=== PATIENT | male | born 1950 | race Caucasian/White ===

== ENCOUNTER → 2018-09-14 | Outpatient (CLI) | payer MEDICARE, OTHER ==
[~2018-09-14] MED LIST: DUTA.5 PO; Flurbiprofen100 MG; HYDSUL200 PO; INCRUSE ELLI62.5 MCG; LIVALO2 MG; METTREX2.5; PRED1; TAMS.4ER; TEMA30 PO
== END | disposition home or self-care (01) ==
LOC: LAB SHORT 07:42 → PLD 07:42
DX: B88.0 Other acariasis (principal); L81.4 Other melanin hyperpigmentation
CPT/HCPCS: 88305

== ENCOUNTER 2020-08-13 08:56 | Day surgery (SDC) | payer MEDICARE, OTHER ==
[~2020-08-13] VITALS: Ht 182.9 cm; Wt 78.4 kg
[~2020-08-13 08:56] MED LIST changes: +ALBU90OI INH; +BIOTIN1 MG PO; +BISM300CH PO; +FOLI1 PO; +LACTOBACILLUS1 EAC4 PO; +LOPE2C PO; +MULVITA PO; +RESTORIL30 M1 PO; +TUMS500 MG PO; +VITAMIN D310 MC4 PO; +Vitamin C100 M1 PO; +XYOSTED100 MG/0.1 SC
--- NOTE | 2020-08-13 09:54 | NUR ---
Ambulatory in Day Surgery. Surgical site prepped with 2% Chlorhexidine cloth wipe. History, Chart, Medications and Allergies reviewed before start of procedure. Lungs clear T/O to Auscultation. Patient confirms NPO status and agrees with scheduled surgery. Pre-Op teaching done. Pt verbalizes understanding. Patient States Post-Procedure ride home has been arranged. Patient reports completing Chlorhexadine shower X2 prior to admission to hospital.
--- NOTE | 2020-08-13 14:49 | NUR ---
LE 1350 Patient up to Ambulate independently. Gait steady. Discharge instructions reviewed with patient. Patient verbalizes understanding. Copy given to patient to take home. PT VERBALIZED UNDERSTANDING OF [facility] DRAINAGE SYSTEM. Dressing to procedure site clean, dry, intact with no visible drainage, swelling, erythema or bruising noted. Patient States Post-Procedure ride home has been arranged. Discharged via wheelchair to private car for ride home. ALL BELONINGS RETURHED TO PATIENT. WENT OVER DISCHARGE INSTRUCTIONS AND [facility] [employer] C[employer] WITH PER PT REQUEST.
[2020-08-14] MEDS ORDERED: LIVALO4 MG PO (19:30)
[2020-08-14] MEDS ORDERED: LEFLUNOMIDE20 M1 PO (19:31)
[2020-08-14] MEDS ORDERED: HYOSCYAMINE0.125 MG SL (19:31)
[2020-08-14] MEDS ORDERED: FLUTICASONE-SA1 EAC8 INH (19:31)
[2020-08-14] MEDS ORDERED: Hydroxychloroq200 MG PO (19:31)
[2020-08-14] MEDS ORDERED: PARO10 PO (19:32)
[2020-08-14] MEDS ORDERED: DUTASTERIDE PO (19:32)
[2020-08-14] MEDS ORDERED: DEPO-TESTO200 MG/1 M IM (19:32)
[2020-08-14] MEDS ORDERED: TAMSULOSIN HCL0.4 M1 PO (19:33)
[2020-08-14] MEDS ORDERED: FOLI1 PO (19:33)
[2020-08-14] MEDS ORDERED: OMEP20ER PO (19:33)
[2020-08-14] MEDS ORDERED: ASCO500 PO (19:34)
[2020-08-14] MEDS ORDERED: MULVITA PO (19:34)
[2020-08-14] MEDS ORDERED: ALLEGRA ALLERG180 MG PO (19:34)
[2020-08-14] MEDS ORDERED: MERIBIN5 M1 PO (19:34)
[2020-08-14] MEDS ORDERED: THERA-D2000 UNIT PO (19:34)
== END 2020-08-13 22:41 | disposition home or self-care (01) ==
LOC: ORSCMMR 08:56 → ORD 10:15 → ORSCMMR 22:41
PROVIDERS: Surgery
PROC: BF031ZZ Plain Radiography of Gallbladder and Bile Ducts using Low Osmolar Contrast (ICD-10-PCS; principal; 2020-08-13 10:15)
PROC: 0FT44ZZ Resection of Gallbladder, Percutaneous Endoscopic Approach (ICD-10-PCS; principal; 2020-08-13 10:15)
DX: K80.20 Calculus of gallbladder without cholecystitis without obstruction (principal); K82.1 Hydrops of gallbladder; J44.9 Chronic obstructive pulmonary disease, unspecified; Z87.891 Personal history of nicotine dependence; Z79.899 Other long term (current) drug therapy
CPT/HCPCS: 74300; 88304; A9270; C1729; J0690; J1100; J1885; J2250; J2405; J2704; J3010; J7120

== ENCOUNTER 2020-08-14 14:28 | Emergency (ER) | payer MEDICARE, OTHER ==
[~2020-08-14] VITALS: Ht 182.9 cm; Wt 78.5 kg
[2020-08-14 15:40] LABS: BASOPHILS ABSOLUTE AUTO 0.04 K/mm3 (0.00-0.23); BASOPHILS PERCENT AUTO 0 % (0-2); EOSINOPHILS ABSOLUTE AUTO 0.04 K/mm3 (0.00-0.68); EOSINOPHILS PERCENT AUTO 0 % (0-6); Hematocrit 45.1 % (37.0-53.0); Hemoglobin 14.9 g/dL (13.5-17.5); IMMATURE GRAN ABSOLUTE AUTO 0.03 K/mm3 (0.00-0.10); IMMATURE GRAN PERCENT AUTO 0 % (0-1); LYMPHOCYTES ABSOLUTE AUTO 0.89 K/mm3 (0.84-5.20); LYMPHOCYTES PERCENT AUTO 8 % (21-46); MONOCYTES ABSOLUTE AUTO 1.22 K/mm3 (0.16-1.47); MONOCYTES PERCENT AUTO 11 % (4-13); Mean Corpuscular HGB 30.1 pg (26.0-34.0); Mean Corpuscular Volume 91 fL (80-100); Mean Platelet Volume 8.8 fL (9.1-12.4); NEUTROPHILS ABSOLUTE AUTO 9.19 K/mm3 (1.96-9.15); NEUTROPHILS PERCENT AUTO 80 % (41-73); Platelet Count 485 K/mm3 (150-400); RDW Coefficient Variation 13.2 % (11.7-14.2); RDW Standard Deviation 43.7 fL (35.1-46.3); Red Blood Cell Count 4.95 M/mm3 (4.30-5.90); White Blood Cell Count 11.41 K/mm3 (4.00-11.30)
[2020-08-14 16:02] LABS: Alanine Aminotransfer (ALT/SGP 53 U/L (12-78); Albumin, Blood 3.7 g/dL (3.4-5.0); Albumin/Globulin Ratio 1.1 (0.8-1.8); Alk Phos 82 U/L (50-136); Anion Gap 4 mmol/L (6-16); Aspartate Aminotrans (AST/SGOT 58 U/L (12-37); Bilirubin, Total 0.5 mg/dL (0.1-1.0); Blood Urea Nitrogen 13 mg/dL (8-24); Bun/Creatinine Ratio 13.6 (12.0-20.0); CO2, Blood 28 mmol/L (21-32); Calcium, Blood 8.7 mg/dL (8.5-10.1); Chloride, Blood 105 mmol/L (98-108); Creatinine, Blood 0.96 mg/dL (0.60-1.20); Globulin, Blood 3.4 g/dL (2.2-4.0); Glomerular Filtration Rate >60 (60-); Glucose, Blood 95 mg/dL (70-99); Sodium, Blood 137 mmol/L (136-145); Total Protein, Blood 7.1 g/dL (6.4-8.2)
[2020-08-14 16:05] LABS: Troponin I <0.015 ng/mL (0.000-0.040)
[2020-08-14] MEDS ORDERED: LIVALO4 MG PO (19:30)
[2020-08-14] MEDS ORDERED: HYOSCYAMINE0.125 MG SL (19:31)
[2020-08-14] MEDS ORDERED: FLUTICASONE-SA1 EAC8 INH (19:31)
[2020-08-14] MEDS ORDERED: LEFLUNOMIDE20 M1 PO (19:31)
[2020-08-14] MEDS ORDERED: Hydroxychloroq200 MG PO (19:31)
[2020-08-14] MEDS ORDERED: DUTASTERIDE PO (19:32)
[2020-08-14] MEDS ORDERED: PARO10 PO (19:32)
[2020-08-14] MEDS ORDERED: DEPO-TESTO200 MG/1 M IM (19:32)
[2020-08-14] MEDS ORDERED: OMEP20ER PO (19:33)
[2020-08-14] MEDS ORDERED: TAMSULOSIN HCL0.4 M1 PO (19:33)
[2020-08-14] MEDS ORDERED: FOLI1 PO (19:33)
[2020-08-14] MEDS ORDERED: ASCO500 PO (19:34)
[2020-08-14] MEDS ORDERED: ALLEGRA ALLERG180 MG PO (19:34)
[2020-08-14] MEDS ORDERED: MULVITA PO (19:34)
[2020-08-14] MEDS ORDERED: MERIBIN5 M1 PO (19:34)
[2020-08-14] MEDS ORDERED: THERA-D2000 UNIT PO (19:34)
== END 2020-08-14 20:37 | disposition home or self-care (01) ==
LOC: ER 14:28
PROVIDERS: Physician Assistant
DX: G89.18 Other acute postprocedural pain (principal); R10.9 Unspecified abdominal pain; M25.511 Pain in right shoulder; Z90.49 Acquired absence of other specified parts of digestive tract; Z79.899 Other long term (current) drug therapy; Z87.891 Personal history of nicotine dependence
CPT/HCPCS: 36415; 71046; 80053; 84484; 85025; 93005; 93010; 96374; 99284-25; J1170

== ENCOUNTER → 2021-05-24 | Outpatient (CLI) | payer MEDICARE, OTHER ==
[~2021-05-24] MED LIST changes: +ALLEGRA ALLERG180 MG PO; +ASCO500 PO; +DEPO-TESTO200 MG/1 M IM; +DUTASTERIDE PO; +FLUTICASONE-SA1 EAC8 INH; +HYOSCYAMINE0.125 MG SL; +Hydroxychloroq200 MG PO; +LEFLUNOMIDE20 M1 PO; +LIVALO4 MG PO; +MERIBIN5 M1 PO; +OMEP20ER PO; +PARO10 PO; +TAMSULOSIN HCL0.4 M1 PO; +THERA-D2000 UNIT PO
== END ==
LOC: LAB SHORT 14:25 → LAB 14:25
DX: H02.825 Cysts of left lower eyelid (principal); D23.122 Other benign neoplasm of skin of left lower eyelid, including canthus
CPT/HCPCS: 88304

== ENCOUNTER → 2023-07-10 | Outpatient (CLI) | payer MEDICARE, OTHER ==
[2023-07-10 14:07] LABS: Campylobacter Sp Not Detected (NOT DETECT)
[2023-07-10 14:08] LABS: Adenovirus F 40/41 Not Detected (NOT DETECT); Astrovirus Not Detected (NOT DETECT); Cryptosporidium Not Detected (NOT DETECT); Cyclospora Cayetanensis Not Detected (NOT DETECT); E. Coli O157 Not Detected (NOT DETECT); Entamoeba Histolytica Not Detected (NOT DETECT); Enteroaggregative E. coli-EAEC Detected (NOT DETECT); Enteropathogenic E. coli-EPEC Not Detected (NOT DETECT); Enterotoxigenic E. coli-ETEC Not Detected (NOT DETECT); Giardia Lamblia Not Detected (NOT DETECT); Norovirus GI/GII Not Detected (NOT DETECT); Plesiomonas Shigelloides Not Detected (NOT DETECT); Rotavirus A Not Detected (NOT DETECT); Salmonella Sp Not Detected (NOT DETECT); Sapovirus Not Detected (NOT DETECT); Shiga Toxin-prod E. coli-STEC Not Detected (NOT DETECT); Shigella/Enteroin E. coli-EIEC Not Detected (NOT DETECT); Vibrio Cholerae Not Detected (NOT DETECT); Vibrio Sp Not Detected (NOT DETECT); Yersinia Enterocolitica Not Detected (NOT DETECT)
== END | disposition home or self-care (01) ==
LOC: LAB 11:54 → LAB SHORT 11:54
PROVIDERS: Internal Medicine Gastroenterology
DX: R19.4 Change in bowel habit (principal)
CPT/HCPCS: 87507

== ENCOUNTER → 2023-08-19 | Outpatient (CLI) | payer MEDICARE, OTHER | LOC: LAB SHORT 09:30 → LAB 09:30 | PROVIDERS: Internal Medicine Gastroenterology | DX: R19.4 Change in bowel habit (principal) | CPT/HCPCS: 82710 ==